=== PATIENT | male | born 1975 | race Caucasian/White ===

== ENCOUNTER 2021-12-10 06:24 | Inpatient (IN) | payer BC ==
[~2021-12-10] VITALS: Ht 180.3 cm; Wt 104.3 kg
--- NOTE | ~2021-12-10 | CON ---
[address] [address] CONSULTATION Name: JENNIFER POTTER Room: [address] IN M.R.#: [id number] Admission: 12/10/21 Attend Phys: Rukhsana Patel MD Discharge: Date of : 77 Report #: [id number] THIS REPORT FOR: cc: SUE - No family physician/PCP FAM - No family physician/PCP Rafael Frausto MD ~ DATE OF CONSULTATION: 12/10/2021 REQUESTING PHYSICIAN: Dr. Rukhsana Patel. INDICATION FOR CONSULTATION: Acute respiratory failure/acute pulmonary edema. HISTORY OF PRESENT ILLNESS: This is a 45-year-old gentleman, past medical history is as mentioned below. He does provide a limited history. He is not vaccinated for COVID. He is an active smoker. The patient reports that he was recently admitted at [place] and over there, he was endotracheally intubated and mechanically ventilated for a cardiac etiology. He also reports that there was at one point consideration for placement for an intraaortic balloon pump. The patient now states that he has been feeling worse over the weekend, but certainly worsened yesterday, had coughed up pink frothy as well as hemorrhagic sputum, did have some chest pain as well, which was not associated with respiration and coughing. He did not have upper respiratory complaints. He does have an increase in swelling of lower extremities. He has not had a calf pain. He answers to the negative for 12 questions for review of systems except as mentioned above. PAST MEDICAL HISTORY: Coronary artery disease, congestive heart failure, recent admission at [place] where he was endotracheal intubation intubated and I understand at one point, there was according to the patient consideration for an intraaortic balloon pump. He just had an echo shows a left ventricular ejection fraction of 20-25% without significant elevation in right heart pressures. Also, history of diabetes, hyperlipidemia, anxiety, recent pneumonia. SOCIAL HISTORY: There is an extensive history of smoking. He still smokes. ALLERGIES: No known drug allergies. CURRENT MEDICATIONS: List in [facility] reviewed. HOME MEDICATIONS: List in [facility] reviewed. FAMILY HISTORY: No pertinent family history is known at this time. PHYSICAL EXAMINATION: [place] [address] CONSULTATION Name: JENNIFER POTTER Taniya Room: [address] IN [facility]#: [id number] Admission: 12/10/21 Attend Phys: Rukhsana Patel MD Discharge: Date of : 77 Report #: [id number] GENERAL: He is alert, awake and oriented. VITAL SIGNS: Has a pulse of 88 and a blood pressure of 119/78. He is saturating around 97%. He is on 5 liters nasal cannula. He is afebrile with a temperature of 36.2. HEENT: Head is normocephalic and atraumatic. There is no throat erythema. NECK: Does not show raised JVP, asymmetry, mass or lymph nodes. CHEST: Symmetrical expansion on inspection and palpation. On auscultation, breath sounds are bilaterally equal. I do not hear any added sounds. HEART: Regular. There is no murmur. ABDOMEN: Soft and nontender. EXTREMITIES: Lower extremities show 1+ edema bilaterally. There is no calf tenderness. SKIN: Dry and intact. NEUROLOGIC: Moves all extremities bilaterally equally and spontaneously with no focal deficit identified. LABORATORY DATA: Lab work as well as CTA chest and a chest x-ray in [facility] reviewed. ASSESSMENT AND PLAN: 1. Acute hypoxemic respiratory failure, primarily my initial impression is that this is secondary to congestive heart failure and does appear to have increased pulmonary vascular on chest x-ray. He does have infiltrates as well. 2. Acute pulmonary edema/acute on chronic systolic congestive heart failure. I agree with Lasix. I would; however, watch his creatinine closely while on Lasix as he just received IV dye as well. Watch potassium. I ordered 2 g of magnesium at this time. 3. Pulmonary infiltrates. Considering his recent hospitalization, I feel that it is reasonable to give him broad antibiotic coverage. He is ordered vancomycin as well as linezolid and Zosyn. I discontinued vancomycin. I switched linezolid over to oral primarily to limit his total fluid intake as primarily he appears to have heart failure. The question is as to whether we should add atypical coverage. I do not feel strongly either way regarding this. If he is not better by tomorrow, I will add atypical coverage. More cultures and serologies are ordered. He is not vaccinated for COVID. I agree with checking PCR for COVID. Pending PCR results, I did order one dose of remdesivir. Hopefully, we will have the results back by tomorrow. I also recommend checking for influenza. 4. Smoker/possible chronic obstructive pulmonary disease. I would continue Solu-Medrol; however, I cut back the dose. We will continue with nebulized bronchodilators. 5. Pedal edema/evaluation for thromboembolic phenomena. His CTA chest is a limited study; however, there is no definite evidence of pulmonary emboli. I would like to do venous Dopplers as well. Meanwhile, he remains on Lovenox in [address] [address] CONSULTATION Name: JENNIFER POTTER Room: [facility] IN [facility]#: [id number] Admission: 12/10/21 Attend Phys: Rukhsana Patel MD Discharge: Date of : 77 Report #: [id number] the prophylactic dose. 6. Clostridium difficile prophylaxis, Lactinex. 7. Gastrointestinal prophylaxis, already on Protonix. Thanks for this consultation. By: 1304 [id number] Frausto MD /nt
[2021-12-10 06:25] VITALS: BP 153/105
[2021-12-10] MEDS ORDERED: PLAVIX 75 MG TA75 MG PO (06:36)
[2021-12-10] MEDS ORDERED: FUROSEMIDE 20 M20 MG PO (06:37)
[2021-12-10] MEDS ORDERED: TOPROL XL50 MG PO (06:37)
[2021-12-10] MEDS ORDERED: SPIRONOLACTONE25 MG PO (06:38)
[2021-12-10] MEDS ORDERED: LANTUS SUBQ (06:38)
[2021-12-10] MEDS ORDERED: HUMALOG100 UNIT/1 SUBQ (06:38)
[2021-12-10] MEDS ORDERED: BUMETANIDE 1 MG1 M1 (06:52)
[2021-12-10] MEDS ORDERED: ATORVASTATIN CA80 MG (06:53)
[2021-12-10 07:22] LABS: HEMATOCRIT 42.5 % (42.0-52.0); HEMOGLOBIN 14.4 gm/dL (14.0-18.0); MCH 30.3 pg (26.0-34.0); MCV 89.1 fL (80.0-100.0); MPV 8.7 fl. (7.2-11.1); NUCLEATED RBCS 0 /100WBC; PLATELET COUNT* 203 thou/uL (150-400); RBC 4.76 mil/uL (4.50-6.00); WBC 14.8 thou/uL (4.0-11.0)
[2021-12-10 07:38] LABS: CALCIUM 8.4 mg/dL (8.5-10.1); POTASSIUM 4.5 mmol/L (3.5-5.1)
[2021-12-10 07:49] LABS: ALBUMIN 3.2 g/dL (3.4-5.0); MAGNESIUM 1.8 mg/dL (1.8-2.4); TOTAL BILIRUBIN 0.7 mg/dL (<0.1-1.0); TOTAL PROTEIN 7.1 g/dL (6.4-8.2)
[2021-12-10 08:04] LABS: ABSOLUTE EOSINOPHILS 0.1 thou/uL (0.0-0.7); ABSOLUTE LYMPHOCYTES 1.3 thou/uL (0.8-5.3); ABSOLUTE NEUTROPHILS 13.3 thou/uL (1.6-8.1); PLATELET ESTIMATE ADEQUATE
[2021-12-10 08:26] LABS: BE -3.5 mmol/L (-2 to +3); PCO2 33.2 mmHg (35.0-45.0); pH 7.402 (7.340-7.450)
[2021-12-10 09:05] LABS: URINE BILIRUBIN NEGATIVE (Negative); URINE BLOOD NEGATIVE (Negative); URINE CLARITY CLEAR; URINE COLOR YELLOW; URINE GLUCOSE-RANDOM 3+ (Negative); URINE KETONES NEGATIVE (Negative); URINE LEUKOCYTES-REFLEX NEGATIVE (Negative); URINE NITRITE-REFLEX NEGATIVE (Negative); URINE PROTEIN TRACE (Negative); URINE UROBILINOGEN 0.2 E.U./dl (0.2-1.0)
[2021-12-10 09:33] VITALS: BP 114/74
--- NOTE | 2021-12-10 09:57 | EKG ---
[place] [address] ELECTROCARDIOGRAM REPORT Name: ABBEYJENNIFER Room: [address] ADM IN [facility].#: [id number] Admission: 12/10/21 Attend Phys: Rukhsana Patel, Discharge: Date of : 77 Date of Service: 12/10/2130 Report #: [id number] THIS REPORT FOR: //name// [facility] ED Test Date: 2021-12-10 Test Time: 06:30:36 Pat Name: JENNIFER POTTER Department: Room: [facility] Gender: M Road Roller Operator: JOSE : 1975 Requested By: Cinda Musa Order Number: [id number] MD: Jhon Azul Measurements Intervals [place] Rate: 107 P: 65 VA: 166 QRS: 99 QRSD: 108 T: 126 QT: 360 QTc: 481 Interpretive Statements Sinus tachycardia Anteroseptal infarct, old Abnormal T, consider ischemia, lateral leads No previous ECG available for comparison Electronically Signed On 12-10-2021 9:56:38 LIFT OPERATOR by Jhon Azul [email or web address] <ELECTRONICALLY SIGNED> By: Jhon Azul MD, FAC 12/10/21 0956 Jhon Azul MD, [facility] /EPI
[2021-12-10 11:30] VITALS: BP 119/78
--- NOTE | 2021-12-10 12:44 | 2DMMODE ---
[place] [address] 2 D/M-MODE ECHOCARDIOGRAM Name: JENNIFER POTTER Room: [address] IN .R.#: [id number] Admission: 12/10/21 Attend Phys: Rukhsana Patel, Discharge: Date of : 77 Date of Service: 12/10/21 1244 Report #: [id number] THIS REPORT FOR: cc: FAM - No family physician/PCP FAM - No family physician/PCP Jhon Azul MD [facility] ~ APPROVED REPORT Study performed: 12/10/2021 11:02:35 EXAM: Comprehensive 2D, Doppler, and color-flow Echocardiogram Patient Location: In-Patient Room #: 223 Status: routine BSA: 2.33 HR: 85 bpm Rhythm: NSR Other Information Study Quality: Good Indications Congestive Heart Failure 2D Dimensions IVSd: 10.15 (7-11mm) LVOT Diam: 23.17 (18-24mm) LVDd: 63.76 mm PWd: 10.34 (7-11mm) Ascending Ao: 29.76 (22-36mm) LVDs: 59.25 (25-40mm) Aortic Root: 33.71 mm Volumes Left Atrial Volume (Systole) LA ESV Index: 41.50 mL/m2 Aortic Valve AoV Peak Jose.: 1.20 m/s AO Peak Gr.: 5.74 mmHg LVOT Max P.59 mmHg AO Mean Gr.: 2.34 mmHg LVOT Mean P.17 mmHg LVOT Max V: 0.80 m/s AO V2 VTI: 18.87 cm LVOT Mean V: 0.49 m/s [place] (VTI): 3.23 cm2 LVOT V1 VTI: 14.47 [place] [address] 2 D/M-MODE ECHOCARDIOGRAM Name: JENNIFER POTTER Room: [address] IN .R.#: [id number] Admission: 12/10/21 Attend Phys: Rukhsana Patel, Discharge: Date of : 77 Date of Service: 12/10/21 1244 Report #: [id number] Mitral Valve E/A Ratio: 3.88 MV Decel. Time: 111.88 ms MV E Max Jose.: 1.10 m/s MV PHT: 32.45 ms MVA (PHT): 6.78 cm2 TDI E/Lateral E': 10.00 E/Medial E': 12.22 Medial E' Jose.: 0.09 m/s Lateral E' Jose.: 0.11 m/s Pulmonary Valve PV Peak Jose.: 0.89 m/s PV Peak Gr.: 3.18 mmHg Left Ventricle Left ventricle is moderately dilated. There is global hypokinesis of the left ventricle. There is normal left ventricular wall thickness. Left ventricular systolic function is severely decreased. LVEF is 20-25%. Grade IV - fixed restrictive diastolic dysfunction. Right Ventricle The right ventricle is normal size. The right ventricular systolic function is normal. Atria Left atrium is moderately dilated. The right atrium size is normal. Aortic Valve The aortic valve is normal in structure. No aortic regurgitation is present. There is no aortic valvular stenosis. Mitral Valve The mitral valve is normal in structure. Mild mitral regurgitation. No evidence of mitral valve stenosis. Tricuspid Valve The tricuspid valve is normal in structure. There is no tricuspid valve regurgitation noted. Pulmonic Valve The pulmonary valve is normal in structure. There is no pulmonic valvular reg[place]itation[place] [address] 2 D/M-MODE ECHOCARDIOGRAM Name: JENNIFER POTTER Room: [address]#: [id number] Admission: 12/10/21 Attend Phys: Rukhsana Patel, Discharge: Date of : 77 Date of Service: 12/10/21 1244 Report #: [id number] The aortic root is normal in size. IVC is dilated. Pericardium There is no pericardial effusion. <Conclusion> Left ventricle is moderately dilated. LVEF is 20-25%. Left atrium is moderately dilated. Mild mitral regurgitation. <ELECTRONICALLY SIGNED> By: Jhon Azul MD, [facility] 12/10/21 1244 1244 1244 Jhon Azul MD, [facility] /INF
[2021-12-10 15:45] VITALS: BP 144/66
[2021-12-10 20:00] VITALS: BP 130/79
[2021-12-11] VITALS: BP 113/43
[2021-12-11 04:00] VITALS: BP 106/71
[2021-12-11 05:23] LABS: HEMATOCRIT 41.2 % (42.0-52.0); MCHC 33.9 g/dL (28.0-37.0); MCV 88.4 fL (80.0-100.0); RBC 4.66 mil/uL (4.50-6.00); RDW-CV 13.7 % (10.5-14.5)
[2021-12-11 05:31] LABS: ALKALINE PHOSPHATASE 79 U/L (46-116); ANION GAP 11 mmol/L (7-16); BUN 16 mg/dL (7-18); CALCIUM 8.8 mg/dL (8.5-10.1); CHLORIDE 100 mmol/L (98-107); CHOLESTEROL 138 mg/dL (<200); CO2 24 mmol/L (21-32); CREATININE 0.9 mg/dL (0.6-1.3); GLUCOSE 257 mg/dL (70-99); HDL CHOLESTEROL 40 mg/dL (>40); LDL CHOLESTEROL 79 mg/dL (<100); MAGNESIUM 2.2 mg/dL (1.8-2.4); POTASSIUM 4.2 mmol/L (3.5-5.1); SGOT 12 U/L (15-37); SGPT 25 U/L (30-65); SODIUM 135 mmol/L (136-145); TC:HDL 3.5 Ratio (Not establshd); TOTAL BILIRUBIN 0.6 mg/dL (<0.1-1.0); TRIGLYCERIDE 95 mg/dL (<150); VLDL 19 mg/dL (<40)
[2021-12-11 05:35] LABS: SERUM ASSESSMENT Clear
[2021-12-11 08:02] VITALS: BP 118/71
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
[2021-12-12 13:08] LABS: MYCOPLASMA PNEUMONIA IgG 1649 U/mL (0-99); MYCOPLASMA PNEUMONIA IgM <770 U/mL (0-769)
== END 2021-12-11 09:15 | disposition left against medical advice (07) | DRG 177 ==
LOC: M.ERS 06:24 → M.2W 08:09 → M.TBA-ER 08:09 → M.2W 09:42
PROVIDERS: Emergency Medicine; Internal Medicine Critical Care Medicine; ADMIT Internal Medicine; ATTEND Internal Medicine
PROC: 5A09357 Assistance with Respiratory Ventilation, Less than 24 Consecutive Hours, Continuous Positive Airway Pressure (ICD-10-PCS; principal; 2021-12-10)
PROC: XW033E5 Introduction of Remdesivir Anti-infective into Peripheral Vein, Percutaneous Approach, New Technology Group 5 (ICD-10-PCS; principal; 2021-12-10)
DX: U07.1 COVID-19 (principal); J96.01 Acute respiratory failure with hypoxia; I50.43 Acute on chronic combined systolic (congestive) and diastolic (congestive) heart failure; J12.82 Pneumonia due to coronavirus disease 2019; R04.2 Hemoptysis; F41.9 Anxiety disorder, unspecified; I25.5 Ischemic cardiomyopathy; E11.9 Type 2 diabetes mellitus without complications; I25.10 Atherosclerotic heart disease of native coronary artery without angina pectoris; E78.5 Hyperlipidemia, unspecified; F17.210 Nicotine dependence, cigarettes, uncomplicated; I25.2 Old myocardial infarction; Z53.29 Procedure and treatment not carried out because of patient's decision for other reasons